=== PATIENT | female | born 1960 | race Caucasian/White ===

== ENCOUNTER 2020-08-25 08:51 | Emergency (ER) | payer BC ==
[~2020-08-25] VITALS: Ht 182.9 cm; Wt 68.5 kg
[~2020-08-25 08:51] MED LIST: CHLO25CA9 PO; CITA40TA12 PO; DISU500T2 PO; DOXE50CA PO; ESTR1PAT10 IH; FINA5TAB4 PO; LAMO100T6 PO; PROP20TA PO; QUET300T5 PO; SERT25TA PO; SPIR100T4 PO; TRAZ-175 PO
[2020-08-25] MEDS ORDERED: ONDANSETRON ODT 4 MG ONE (09:17)
[2020-08-25] MEDS ORDERED: OXYcodone/APAP 5/325MG TABLET ONE (09:18)
[2020-08-25] MEDS ORDERED: ONDANSETRON ODT 4 MG PO ONE (09:30)
[2020-08-25] MEDS ORDERED: OXYcodone/APAP 5/325MG TABLET PO ONE (09:30)
[2020-08-25 09:47] LABS: HCT (SEDRATE) 41.2 % (34.6-47.8)
[2020-08-25 09:49] LABS: BASOPHILS % (AUTO) 1 % (0-1); EOSINOPHILS % (AUTO) 2 % (1-7); LYMPHOCYTES % (AUTO) 21 % (22-44); MEAN CORPUSCULAR HEMOGLOBIN 30.2 pg (27.0-34.8); MEAN CORPUSCULAR HGB CONC 34.3 g/dL (32.4-35.8); MEAN PLATELET VOLUME 7.4 fL (7.4-10.4); MONOCYTES % (AUTO) 9 % (2-9); NEUTROPHILS % (AUTO) 67 % (42-75); PLATELET COUNT 234 x10^3/uL (130-400); RED BLOOD COUNT 4.64 x10^6/uL (3.82-5.3); RED CELL DISTRIBUTION WIDTH 14.3 % (9.6-15.2)
[2020-08-25 09:50] LABS: MD NO
[2020-08-25 09:58] LABS: ALANINE AMINOTRANSFERASE 21 U/L (12-78); ALBUMIN 3.7 g/dL (3.4-5.0); ANION GAP 3 mmol/L (5-15); C-REACTIVE PROTEIN, QUANT 0.11 mg/dL (0.02-0.49); CALCIUM 8.8 mg/dL (8.5-10.1); CHLORIDE 106 mmol/L (98-107); CREATININE 0.69 mg/dL (0.55-1.02)
[2020-08-25 10:00] LABS: ALKALINE PHOSPHATASE 101 U/L (45-117); BILIRUBIN,TOTAL 0.4 mg/dL (0.2-1.0)
[2020-08-25 10:57] VITALS: BP 136/82
== END 2020-08-25 10:59 | disposition home or self-care (01) ==
LOC: ED 09:24
DX: G89.28 Other chronic postprocedural pain (principal); Z79.899 Other long term (current) drug therapy; L98.9 Disorder of the skin and subcutaneous tissue, unspecified
CPT/HCPCS: 36415; 73130; 80053; 85025; 85651; 86140; 99284; Q0162